=== PATIENT | male | born 1980 | race Caucasian/White ===

== ENCOUNTER 2016-07-15 10:13 | Emergency (ER) | payer OTHER ==
[2016-07-15 10:30] VITALS: BP 115/68; PULSE 70; RESP 16; TEMP 98.7
--- NOTE | 2016-07-15 10:37 | ED ---
General Adult HPI - General Chief complaint: Extremity Injury, Upper Stated complaint: Thumb injury Time Seen by Provider: 07/15/16 10:32 Source: patient, RN notes reviewed Mode of arrival: ambulatory Limitations: no limitations - History of Present Illness Initial comments: Patient is a 36-year-old male who presents emergency room today with a chief complaint of left thumb pain and injury that occurred 5 days ago. He does admit that he was at work pulling out poles. States he was using a chain and a skid steer. States she pulled back pinched his left thumb. States he seems a time to cause small cut. Does admit that his tetanus is up-to-date. States been having increased pain at the DIP joint area. He denies any other complaints symptoms. Patient states he is right-handed. Patient denies any recent fever, chills, shortness of breath, chest pain, back pain, abdominal pain , nausea or vomiting, numbness or tingling, dysuria or hematuria, constipation or diarrhea, headaches or visual changes, or any other complaints. - Related Data Previous Rx's Medication Instructions Recorded Ibuprofen [Motrin] 600 mg PO Q6HR PRN #30 day 07/15/16 Allergies Allergy/AdvReac Type Severity Reaction Status Date / Time No Known Allergies Allergy Verified 07/15/16 10:30 Review of Systems ROS Statement: Those systems with pertinent positive or pertinent negative responses have been documented in the HPI. ROS Other: All systems not noted in ROS Statement are negative. Past Medical History Past Medical History: Hyperlipidemia Additional Past Medical History / Comment(s): back pain, kidney stones History of Any Multi-Drug Resistant Organisms: None Reported Past Surgical History: No Surgical Hx Reported Additional Past Surgical History / Comment(s): egd Past Psychological History: Depression Smoking Status: Current every day smoker Past Alcohol Use History: Rare Past Drug Use History: Marijuana General Exam - General Exam Comments Initial Comments: General: The patient is awake and alert, in no distress, and does not appear acutely ill. Neck: The neck is supple, there is no tenderness or JVD. Cardiovascular: There is a regular rate and rhythm. No murmur, rub or gallop is appreciated. Respiratory: Lungs are clear to auscultation, respirations are non-labored, breath sounds are equal. No wheezes, stridor, rales, or rhonchi. Musculoskeletal: Patient does have small abrasion over the dorsal aspect of the left thumb at the DIP joint. Patient's sensations are intact pulses equal bilaterally 2+. Shows good range of motion. Does have tenderness of the DIP joint. Neurological: A&O x 3. CN II-XII intact, There are no obvious motor or sensory deficits. Coordination appears grossly intact. Speech is normal. Skin: Skin is warm and dry and no rashes or lesions are noted. Psychiatric: Normal mood and affect. Limitations: no limitations Course Vital Signs 07/15/16 10:27 Temperature 98.7 F Pulse Rate 70 Respiratory 16 Rate Blood Pressure 115/68 O2 Sat by Pulse 100 Oximetry Medical Decision Making - Medical Decision Making Patient's x-ray reviewed is unremarkable. No fracture dislocation. Results were discussed with the patient. Patient advised follow-up over the next 7-10 days if symptoms persist for further evaluation. Patient's abrasion no sign of infection. Advised to watch for any increased redness and irritation. Advised return for any other concerns. Patient states understanding and is in agreement. Disposition Clinical Impression: Finger contusion Disposition: HOME SELF-CARE Condition: Good Instructions: Contusion in Adults (ED) Additional Instructions: Please use ice and elevate the affected area at least 4 times a day for 20 minutes at a time. Please use ibuprofen for pain as needed. Please follow-up with family doctor or orthopedics for further evaluation over the next 7-10 days if symptoms are unimproved. Please return to emergency room if any symptoms increase or worsen or for any concerns as discussed. Prescriptions: Ibuprofen [Motrin] 600 mg PO Q6HR PRN #30 day PRN Reason: Pain Referrals: Dm Rene MD [Primary Care Provider] - 1-2 days Ubaldo Reyes MD [STAFF PHYSICIAN] - 1-2 days Time of Disposition: 11:13
--- NOTE | 2016-07-15 11:07 | XR ---
EXAMINATION TYPE: XR finger LT DATE OF EXAM: 07/15/2016 10:52 AM COMPARISON: NONE HISTORY: Right thumb TECHNIQUE: 3 views FINDINGS: No acute fractures are evident. Soft tissues are normal. No radiopaque foreign bodies are e vident. IMPRESSION: 1. Normal three-view left thumb
== END 2016-07-15 11:25 | disposition home or self-care (01) ==
LOC: EC 10:13
DX: S60.312A Abrasion of left thumb, initial encounter (principal); S60.012A Contusion of left thumb without damage to nail, initial encounter; F17.200 Nicotine dependence, unspecified, uncomplicated; W31.89XA Contact with other specified machinery, initial encounter; Y99.0 Civilian activity done for income or pay
CPT/HCPCS: 99283

== ENCOUNTER 2017-02-23 09:16 | Emergency (ER) | payer OTHER ==
[2017-02-23 09:19] VITALS: BP 129/74; PULSE 69; RESP 18; TEMP 97
[2017-02-23] MEDS ORDERED: SODIUM CHLORIDE 0.9% 1,000 ML IV STA (09:35)
--- NOTE | 2017-02-23 09:45 | ED ---
General Adult HPI - General Chief complaint: Dental/Oral Stated complaint: Dental Time Seen by Provider: 02/23/17 09:25 Source: patient, RN notes reviewed Mode of arrival: ambulatory Limitations: no limitations - History of Present Illness Initial comments: Patient's 36-year-old male who presents emergency room today with chief complaint of increased dental pain. He does admit that he is eating candy days ago when he cracked tooth #29. Patient does admit to pain locally to this area. He denies any other complaints or associated symptoms. Denies any drainage or discharge. Patient denies any recent fever, chills, shortness of breath, chest pain, back pain, abdominal pain, nausea or vomiting, numbness or tingling, dysuria or hematuria, constipation or diarrhea, headaches or visual changes, or any other complaints. - Related Data Previous Rx's Medication Instructions Recorded Ibuprofen [Motrin] 600 mg PO Q6HR PRN #30 day 07/15/16 Hydrocodone/Acetaminophen [Anatone 1 each PO Q6HR PRN #10 tab 02/23/17 5-325] Penicillin V Potassium [Pen Vee K] 500 mg PO QID 10 Days 02/23/17 Allergies Allergy/AdvReac Type Severity Reaction Status Date / Time No Known Allergies Allergy Verified 02/23/17 09:19 Review of Systems ROS Statement: Those systems with pertinent positive or pertinent negative responses have been documented in the HPI. ROS Other: All systems not noted in ROS Statement are negative. Past Medical History Past Medical History: Hyperlipidemia Additional Past Medical History / Comment(s): back pain, kidney stones History of Any Multi-Drug Resistant Organisms: None Reported Past Surgical History: No Surgical Hx Reported Additional Past Surgical History / Comment(s): egd Past Psychological History: Depression Smoking Status: Current every day smoker Past Alcohol Use History: Rare Past Drug Use History: Marijuana General Exam - General Exam Comments Initial Comments: General: The patient is awake and alert, in no distress, and does not appear acutely ill. Eye: Pupils are equal, round and reactive to light, extra-ocular movements are intact. No nystagmus. There is normal conjunctiva bilaterally. No signs of icterus. Ears, nose, mouth and throat: There are moist mucous membranes and no oral lesions. Fractured tooth #29. Locally tender in this area. No sign of abscess no drainage or discharge. Uvula midline. Neck: The neck is supple, there is no tenderness or JVD. Cardiovascular: There is a regular rate and rhythm. No murmur, rub or gallop is appreciated. Respiratory: Lungs are clear to auscultation, respirations are non-labored, breath sounds are equal. No wheezes, stridor, rales, or rhonchi. Musculoskeletal: Normal ROM, no tenderness. Strength 5/5. Sensation intact. Pulses equal bilaterally 2+. Neurological: A&O x 3. CN II-XII intact, There are no obvious motor or sensory deficits. Coordination appears grossly intact. Speech is normal. Skin: Skin is warm and dry and no rashes or lesions are noted. Psychiatric: Cooperative, appropriate mood & affect, normal judgment. Limitations: no limitations Course Vital Signs 02/23/17 09:17 Temperature 97.0 F L Pulse Rate 69 Respiratory 18 Rate Blood Pressure 129/74 O2 Sat by Pulse 100 Oximetry Medical Decision Making - Medical Decision Making Patient advised follow-up with dentist. Was started on antibiotic given short prescription for pain medication. Disposition Clinical Impression: Pain, dental Disposition: HOME SELF-CARE Condition: Good Instructions: Toothache (ED) Additional Instructions: Please follow-up with dentist and use antibiotic and pain medication as discussed. [facility] [address] [place] [address] [phone]) (existing clients only) For new clients: [phone] [employer] [facility] Pay $50 for x-rays and the rest discovered [phone] Prescriptions: Hydrocodone/Acetaminophen [Anatone 5-325] 1 each PO Q6HR PRN #10 tab PRN Reason: Pain Penicillin V Potassium [Pen Vee K] 500 mg PO QID 10 Days Referrals: Dm Rene MD [Primary Care Provider] - 1-2 days Time of Disposition: 09:45
== END 2017-02-23 09:59 | disposition home or self-care (01) ==
LOC: EC 09:16
DX: S02.5XXA Fracture of tooth (traumatic), initial encounter for closed fracture (principal); K08.89 Other specified disorders of teeth and supporting structures; F17.200 Nicotine dependence, unspecified, uncomplicated
CPT/HCPCS: 99282